=== PATIENT | male | born 1940 | race Caucasian/White ===

== ENCOUNTER → 2021-01-27 | Outpatient (CLI) | payer MEDICARE, OTHER ==
--- NOTE | 2021-01-27 14:24 | RAD ---
EXAM: Renal sonogram. HISTORY: Renal insufficiency. History of bladder mass resection. TECHNIQUE: Sonographic imaging the kidneys and bladder was performed. COMPARISON: None. FINDINGS: The kidneys are normal in size. There is a 5.7 cm cyst within the left kidney. This is simp le in appearance. There is no hydronephrosis. The inferior vena cava and aorta are partially obscured due to bowel gas. The prevoid bladder volume is 202 cc and a post void bladder volume is 46 cc. The ureteral jets are both seen. IMPRESSION: 1. 5.7 cm simple appearing left renal cyst. Follow-up is not routinely performed for simple cysts. 2. Small post void bladder residual of 46 cc. Electronically signed by: Jen Cooper MD (01/27/2021 2:22 PM) [id number]
== END ==
LOC: US 13:38 → EDBD 13:38
PROVIDERS: ATTEND Internal Medicine Nephrology
DX: N18.32 Chronic kidney disease, stage 3b (principal); N28.1 Cyst of kidney, acquired
CPT/HCPCS: 76770

== ENCOUNTER → 2021-11-09 | Outpatient (CLI) | payer OTHER ==
[2021-11-09 13:54] LABS: CLARITY,URINE TURBID; COLOR,URINE YELLOW; GLUCOSE,URINE NEG (NEG)
[2021-11-09 13:55] LABS: BACTERIA,URINE 0 /HPF (0-FEW); NITRITE,URINE NEG (NEG); UROBILINOGEN,URINE 0.2 mg/dL (0.2 mg/dL); WBC,URINE TNTC /HPF (0-4)
== END ==
LOC: LAB 12:45
PROVIDERS: ATTEND Internal Medicine Cardiovascular Disease
DX: R31.9 Hematuria, unspecified (principal)
CPT/HCPCS: 81001; 87086

== ENCOUNTER → 2022-01-18 | Outpatient (CLI) | payer MEDICARE, OTHER ==
--- NOTE | 2022-01-18 11:50 | RAD ---
INDICATION: Reason: RT LEG PAIN/SWELLING / Spl. Instructions: / History: COMPARISON: None. TECHNIQUE: Grayscale, color and doppler ultrasound images were obtained of the right lower extremity venous vasculature. RIGHT: No thrombus identified in the common femoral vein, femoral vein, popliteal vein or visualized calf ve ins. Edema of soft tissues. IMPRESSION: * No thrombus identified in deep venous system of right lower extremity. Electronically signed by: Bao Tamayo MD (01/18/2022 11:48 AM) [id number]
--- NOTE | 2022-01-18 12:08 | RAD ---
INDICATION: Reason: PAIN IN RT KNEE.REDNESS AND SWELLING / Spl. Instructions: / History: COMPARISON: None. IMPRESSION: Right knee: 3 views obtained. No acute fracture or dislocation. Degenerative changes are identified o f the right knee involving all 3 compartments with joint space narrowing and osteophyte formation. Ca lcific atherosclerosis. There is some suspected chondrocalcinosis. Moderate to large joint effusion. There is also thickening of the prepatellar soft tissues with induration the fat. Could be from prepa tellar bursitis or subcutaneous fluid collection in the area. Another possible cause would include co nfluent edema and swelling. Calcifications in the soft tissues versus loose body at posterior knee. Electronically signed by: Bao Tamayo MD (01/18/2022 12:06 PM) [id number]
== END ==
LOC: US 11:15
PROVIDERS: ATTEND Family Medicine
DX: M17.11 Unilateral primary osteoarthritis, right knee (principal); M25.761 Osteophyte, right knee; M25.461 Effusion, right knee; M79.89 Other specified soft tissue disorders; M25.861 Other specified joint disorders, right knee
CPT/HCPCS: 73562; 93971